=== PATIENT | male | born 1985 ===

== ENCOUNTER 2024-12-12 11:15 | Emergency (ER) | payer SELFPAY ==
[2024-12-12] MEDS ORDERED: Proparacaine 0.5% Opth 15 ML BOT ONE (11:28)
[2024-12-12] MEDS ORDERED: Fluorescein Opthalmic Strip ONE (11:28)
== END 2024-12-12 12:21 | disposition home or self-care (01) ==
LOC: ERS 11:15
DX: S05.02XA Injury of conjunctiva and corneal abrasion without foreign body, left eye, initial encounter (principal); H11.422 Conjunctival edema, left eye; H11.32 Conjunctival hemorrhage, left eye; W20.8XXA Other cause of strike by thrown, projected or falling object, initial encounter
CPT/HCPCS: 99283